=== PATIENT | female | born 1985 | race Caucasian/White ===

== ENCOUNTER 2018-08-18 10:03 | Emergency (ER) | payer OTHER ==
[2018-08-18 10:26] VITALS: BP 118/66
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
[2018-08-18] MEDS ORDERED: Ibuprofen TAB* 600 MG PO ONE (11:05)
== END 2018-08-18 13:10 | disposition home or self-care (01) ==
LOC: UCEAST 10:03
DX: S16.1XXA Strain of muscle, fascia and tendon at neck level, initial encounter (principal); S29.012A Strain of muscle and tendon of back wall of thorax, initial encounter; V49.40XA Driver injured in collision with unspecified motor vehicles in traffic accident, initial encounter; Y92.410 Unspecified street and highway as the place of occurrence of the external cause
CPT/HCPCS: 72125; 72128; 84702; 99203; A9270-GY; G0463